=== PATIENT | female | born 1950 | race Caucasian/White ===

== ENCOUNTER 2025-01-08 10:16 | Outpatient (AMB) | payer MEDICARE, SELFPAY ==
--- NOTE | 2025-01-08 10:23 | MHC.OFFVIS ---
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 states this has been an ongoing issue for about 25 years. Legs get stiff at times as well. No pain. Issues going up and down stairs. Feels like there is fluid in her legs. 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 The swelling has been present for approximately 25 years on one side and has recently started affecting the other side, extending to the knees. The patient reports that the swelling does not cause pain but is associated with a sensation of pressure, particularly when climbing stairs or entering a bathtub. The patient has a history of diabetes mellitus, which does not currently cause pain during ambulation, except when ascending stairs, where pressure is felt in the knees. Previous evaluations included an MRI, which was conducted at [facility], but the patient did not receive satisfactory follow-up or trust in the previous provider's assessment. It has been affecting there daily activities including walking. It is noted more so in left leg. Patient denies any previous venous surgery or injections. Patient denies any history of DVT/ PE. Patient denies any history of phlebitis. Trial of compression includes - [] They now present for vascular evaluation regarding their varicose veins. Review of Systems Const Reports as per HPI ENT Reports no additional complaints Card Denies chest pain, Denies chest pain at rest and Denies chest pain with activity Resp Denies chest congestion and Denies cough GI Reports no additional complaints Musc Details: pain over varicosities, aching of lower extremities, swelling, cramping, heaviness and tiredness, itching Denies abnormal gait Skin/Breast Reports pruritus and Denies wounds Neuro Reports no additional complaints and Denies abnormal gait Psych Denies no additional complaints Physical Exam Const General: cooperative, healthy appearing and comfortable Orientation/consciousness: oriented to person, oriented to place and oriented to time Neck Carotids: no bruits Chest Chest palpation & inspection: normal inspection of the chest and normal palpation of entire chest wall Resp Effort & Inspection: normal respiratory effort and able to speak in complete sentences Cardio Rate: regular rate Heart sounds: S1 normal heart sound present and S2 normal heart sound present Peripheral pulses: Peripheral pulses 2+ throughout GI Inspection: Yes normal to inspection Skin Other: +2 edema, large rope-like varicosities greater than 4 mm CEAP Classification C4 - skin color changes Ep - Etiology Primary As - superficial veins P - reflux General skin exam: dry skin Neuro General: oriented to person, oriented to place and oriented to time Extrem Right lower extremity: full ROM, normal capillary refill and edema Left lower extremity: full ROM, normal capillary refill and edema Psych Mental Status: mental status grossly normal Assessment & Plan Assessment & Plan (1) Varicose veins of left lower extremity with inflammation: Code(s): I83.12 - Varicose veins of left lower extremity with inflammation Category: Medical Plan: In short, the patient has evidence of venous insufficiency. I have discussed the pathophysiology with the patient. In addition I have provided informational material regarding venous disease to the patient. We have discussed conservative measures including compression, elevation, and exercise. I have also provided a handout regarding appropriate use of compression stockings and where to purchase good compression stockings as well. I have taken the liberty of ordering venous insufficiency testing with the patient. They will follow up with me after testing. The patient had an opportunity to ask questions regarding the treatment plan. All questions were answered. Imaging studies, laboratory studies and physical exam results were discussed and reviewed in detail. No major barriers to understanding were identified. The patient expressed understanding and agreement with the above treatment plan. The patient is aware they should contact our office by phone for worsening of the current condition or the appearance of new symptoms. Thank you for allowing me to participate in the vascular care of this patient. If you have any questions or concerns regarding the treatment for the above condition please do not hesitate to contact me. The office telephone contact is [phone]. This note is constructed using voice recognition software. While every effort has been made to ensure accuracy, cardiac care nurse errors may have been included. Thank you for allowing me to participate in the care of your patient. Yours sincerely, Damon Carl MD, FACS, R.P.V.I. Orders: Orders US venous duplex LE BI Today I83.12 - Varicose veins of left lower extremity with inflammation Coding Level of Care Code New Pt Level 4 (37121) Diagnoses Varicose veins of left lower extremity with inflammation I83.12
--- OUTSIDE RECORDS SUMMARY | 2025-01-08 11:48 | XMS_ITS | Data Portability ---
Author Organization [facility]EL[facility] - [facility], [facility] [place] Address [address] [place] [address] Care Team Providers Care Faculty Member Name Role Phone DEENA LOPEZ Primary Care Provider [phone] Assessment Encounter Date Assessment Date Assessment LastModified by Organization Details LastModified Time 10/11/2024 10/11/2024 A: Progressing ROM and AROM Strength while following rule of pain. Added standing flexion and ABD this session to promote AROM against gravity for full range. P: Continue PT to decrease pain, increase ROM, optimize mechanics for functional movement, and facilitate independence in ADL's. Not available 10/11/2024 12:15:05 11/06/2024 11/06/2024 A: Continuation of current AROM HEP due to pt being in [place] for past 3 weeks; waiting until cleared by MD to begin strengthening. Excellent increase in available PROM P: Continue PT to decrease pain, increase ROM, optimize mechanics for functional movement, and facilitate independence in ADL's. FOLLOW UP WITH MD 11/08/24; HOLD STRENGTHENING UNTIL THEN Not available 11/06/2024 12:13:20 11/09/2024 11/09/2024 A: Added shoulder isometrics per MD. Patient didn't feel any stretch with wall slides or cane shoulder flexion today. P: Increase reps with isometrics N/V. Not available 11/09/2024 11:50:55 11/13/2024 11/13/2024 A: Added Tband therex per MD orders. P: Patient will be going on vacation for the next 2 weeks. Patient to be seen for 1-2 more visits and will then be D/Tanner. Add prone T, Y, I's and ER w/wt in S/L. [email or web address] Not available 11/13/2024 12:13:02 Plan of Treatment Reminders Order Date Submit Date Provider Last Modified By Organization Details Last Modified Time Details Appointments None record ed. Lab None record ed. Referral None record ed. Procedures None record ed. Surgeries None record ed. Imaging None record ed. Medication Orders None record ed. Patient TargetsNo targets recorded. Patient InstructionsNo instructions recorded. Reason for Referral None Reported. 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 Procedures Surgical History Date Name Laterality Status Provider Name and Address Organization Details Recorded Time 5 34980 Therapeutic Exercise (1:1) completed Brenden Will, PT [address] [facility], [place], [address], [facility] 11/13/2024 12:09:14 5 99573: Manual therapy completed Brenden Will PT [address], [place], [address], [facility] 11/13/2024 12:09:12 5 03520 Therapeutic Exercise (1:1) completed Brenden Will PT [address], [place], [address], [facility] 11/09/2024 11:42:50 5 73725: Hot or Cold Pack completed Brenden Will PT [address], [place], [address], [facility] 11/08/2024 06:38:36 5 72578: Manual therapy completed Brenden Will, PT [address], [place], [address], [facility] 11/09/2024 11:42:44 5 27360 Therapeutic Exercise (1:1) completed Steph Narayanan, ASSISTANT TO THE VICE PRESIDENT [address], [place], [address], [facility] 11/05/2024 13:53:02 5 06992: Hot or Cold Pack completed Steph Narayanan ASSISTANT TO THE VICE PRESIDENT [address], [place], [address], [facility] 11/05/2024 13:53:02 5 42250: Manual therapy completed Steph Narayanan ASSISTANT TO THE VICE PRESIDENT [address], [place], [address], [facility] 11/05/2024 13:53:02 5 54082 Therapeutic Exercise (1:1) completed Steph Narayanan PTA [address], [place], [address], [facility] 10/11/2024 12:16:56 5 83859: Hot or Cold Pack completed Steph Narayanan ASSISTANT TO THE VICE PRESIDENT [address], [place], [address], [facility] 10/10/2024 12:04:53 5 50815: Manual therapy completed Steph Narayanan ASSISTANT TO THE VICE PRESIDENT [address], [place], [address], [facility] 10/11/2024 12:17:03 5 47920 Therapeutic Exercise (1:1) completed Steph Narayanan, ASSISTANT TO THE VICE PRESIDENT [address], [place], [address], [facility] 10/08/2024 13:25:46 5 53719: Hot or Cold Pack completed Steph Narayanan, ASSISTANT TO THE VICE PRESIDENT [address], [place], [address], [facility] 10/05/2024 10:34:35 5 76104: Manual therapy completed Steph Narayanan, ASSISTANT TO THE VICE PRESIDENT [address], [place], [address], [facility] 10/05/2024 10:34:35 5 04671 Therapeutic Exercise (1:1) completed Steph Narayanan PTA [address], [place], [address], [facility] 10/03/2024 14:20:28 5 20720: Hot or Cold Pack completed Steph Narayanan, ASSISTANT TO THE VICE PRESIDENT [address], [place], [address], [facility] 10/03/2024 14:20:28 5 71204: Manual therapy completed Steph Narayanan, ASSISTANT TO THE VICE PRESIDENT [address], [place], [address], [facility] 10/03/2024 14:20:28 5 39502 Therapeutic Exercise (1:1) completed Steph Narayanan PTA [address], [place], [address], [facility] 10/01/2024 13:18:56 5 94983: Hot or Cold Pack completed Brenden Will, PT [address], [place], [address], [facility] 09/28/2024 14:25:25 5 35021: Manual therapy completed Brenden Will, PT [address], [place], [address], [facility] 09/28/2024 14:25:25 5 43218 Therapeutic Exercise (1:1) completed Steph Narayanan PTA [address], [place], [address], [facility] 09/26/2024 10:46:40 5 22911: Hot or Cold Pack completed Steph Narayanan, ASSISTANT TO THE VICE PRESIDENT [address], [place], [address], [facility] 09/26/2024 10:46:40 51447: Manual therapy completed Steph Narayanan, ASSISTANT TO THE VICE PRESIDENT [address], [place], [address], [facility] 09/26/2024 10:46:40 5 79627 Therapeutic Exercise (1:1) completed Steph Narayanan ASSISTANT TO THE VICE PRESIDENT [address], [place], [address], [facility] 09/21/2024 08:27:02 5 38239: Hot or Cold Pack completed Steph Narayanan, ASSISTANT TO THE VICE PRESIDENT [address], [place], [address], [facility] 09/21/2024 08:26:39 5 87293: Manual therapy completed Steph Narayanan PTA [address], [place], [address], [facility] 09/24/2024 10:58:29 47655 Therapeutic Exercise (1:1) completed Steph Narayanan PTA [address], [place], [address], [facility] 09/19/2024 13:45:39 5 91147: Hot or Cold Pack completed Steph Narayanan, ASSISTANT TO THE VICE PRESIDENT [address], [place], [address], [facility] 09/19/2024 13:45:39 44218: Manual therapy completed Steph Narayanan, ASSISTANT TO THE VICE PRESIDENT [address], [place], [address], [facility] 09/19/2024 13:45:39 07/21/202 5 40142 Therapeutic Exercise (1:1) completed Steph Narayanan, ASSISTANT TO THE VICE PRESIDENT [address], [place], [address], [facility] 09/14/2024 13:11:17 5 20933: Hot or Cold Pack completed Steph Narayanan, ASSISTANT TO THE VICE PRESIDENT [address], [place], [address], [facility] 09/14/2024 13:11:17 5 67036: Manual therapy completed Steph Narayanan, ASSISTANT TO THE VICE PRESIDENT [address], [place], [address], [facility] 09/14/2024 13:11:17 5 82199 Therapeutic Exercise (1:1) completed Steph Narayanan, ASSISTANT TO THE VICE PRESIDENT [address], [place], [address], [facility] 09/12/2024 15:21:46 5 36892: Hot or Cold Pack completed Steph Narayanan, ASSISTANT TO THE VICE PRESIDENT [address], [place], [address], [facility] 09/12/2024 15:21:46 5 85362: Manual therapy completed Steph Narayanan, ASSISTANT TO THE VICE PRESIDENT [address], [place], [address], [facility] 09/12/2024 15:21:46 5 80114 Therapeutic Exercise (1:1) completed Brenden Will, PT [address], [place], [address], [facility] 09/06/2024 13:05:22 5 82475: Hot or Cold Pack completed Brenden Will, PT [address], [place], [address], [facility] 09/06/2024 13:05:22 5 48673: Manual therapy completed Brenden Will, PT [address], [place], [address], [facility] 09/10/2024 12:43:14 5 02265 Therapeutic Exercise (1:1) completed Steph Narayanan, ASSISTANT TO THE VICE PRESIDENT [address], [place], [address], [facility] 09/06/2024 14:58:34 5 87807: Hot or Cold Pack completed Steph Narayanan, ASSISTANT TO THE VICE PRESIDENT [address], [place], [address], [facility] 09/05/2024 13:21:04 5 23527: Manual therapy completed Steph Narayanan, ASSISTANT TO THE VICE PRESIDENT [address], [place], [address], [facility] 09/05/2024 13:21:04 5 03169 Therapeutic Exercise (1:1) completed Brenden Will, PT [address], [place], [address], [facility] 08/29/2024 15:33:23 5 82662: Hot or Cold Pack completed Brenden Will, PT [address], [place], [address], [facility] 08/29/2024 15:33:23 5 17606: Manual therapy completed Brenden Will, PT [address], [place], [address], [facility] 08/29/2024 15:33:23 5 33027 Therapeutic Exercise (1:1) completed Brenden Will, PT [address], [place], [address], [facility] 08/27/2024 18:32:55 5 38858: Hot or Cold Pack completed Brenden Will, PT [address], [place], [address], [facility] 08/27/2024 18:32:55 5 76123: Manual therapy completed Brenden Will, PT [address], [place], [address], [facility] 08/27/2024 18:32:55 5 73848 Therapeutic Exercise (1:1) completed Steph Narayanan, ASSISTANT TO THE VICE PRESIDENT [address], [place], [address], [facility] 08/23/2024 08:27:30 5 52624: Hot or Cold Pack completed Steph Nraayanan, ASSISTANT TO THE VICE PRESIDENT [address], [place], [address], [facility] 08/23/2024 08:27:30 5 48529: Manual therapy completed Steph Narayanan, ASSISTANT TO THE VICE PRESIDENT [address], [place], [address], [facility] 08/23/2024 08:27:30 5 21223 Therapeutic Exercise (1:1) completed Brenden Will, PT [address], [place], [address], [facility] 08/20/2024 11:13:28 5 74952: Hot or Cold Pack completed Brenden Will, PT [address], [place], [address], [facility] 08/20/2024 11:13:28 5 71787: Manual therapy completed Brenden Will, PT [address], [place], [address], [facility] 08/20/2024 11:13:28 5 99330 Therapeutic Exercise (1:1) completed Brenden Will, PT [address], [place], [address], [facility] 08/17/2024 14:33:59 5 84655: Hot or Cold Pack completed Brenden Will, PT [address], [place], [address], [facility] 08/17/2024 14:34:20 5 83652: Manual therapy completed Brenden Will, PT [address], [place], [address], [facility] 08/17/2024 14:34:10 5 55134 Therapeutic Exercise (1:1) completed rBenden Will, PT [address], [place], [address], [facility] 08/15/2024 07:28:00 5 46255: Low complexity PT Eval completed Brenden Will, PT [address], [place], [address], [facility] 08/15/2024 07:28:05 Imaging Results None recorded. Procedure Notes None recorded. Medical Equipment None Reported. Allergies Allergen ID Allergen Name Allergen Category Reaction Reaction Severity Criticality Documentation Date Start Date Code Code System Note Provider Name and Address Organization Details Recorded Time 893550 walnut allergeni c extract food Not available Not available Not available 01/27/2024 30338 0 RxNorm SMOOTH CADENA [facility] 4 13:11:20 717082 apple extract food Not available Not available Not available 01/27/2024 88841 65 RxNorm SMOOTH CADENA [facility] 4 13:11:27 No known drug allergies Medications Name Sig Start Date Stop Date Status Note LastModified by Organization Details LastModified Time oxycodone 5 mg tablet Take 1 tablet every 6 hours by oral route as needed, for severe post op pain. 025 09/06 completed Not Available Not Available Not Available Vitals Date Recorded Body height Body mass index (BMI) Body weight Provider Name and Address Organization Details Last Updated DateTime 11/08/2024 160.02 cm 27.8 kg/m2 13128 g Essence rosario [facility] 11/08/2024 08:38:09 Social History None recorded. Functional Status None recorded. Mental Status None recorded. Family History Nothing Reported. Medical History Condition Response Allergies/Hayfever N Coronary Artery Disease N Breathing or lung disorders N Anxiety/Depression N Emphysema N Nerve Disorders N Thyroid Problems Y COPD N Pacemaker N Kidney/Bladder Problems N Anemia N Vascular Disease N Heart Trouble N Heart Attack ([place]) N Gastrointestinal Disease N Cholesterol Y Diabetes N Autoimmune disease N Inflammatory Joint disease N Bleeding Disorder N Orthotics N Seizures/Epilepsy N Arthritis Y Blood Clot N AIDS/HIV N Congestive Heart Failure (CHF) N Acid Reflux (GERD) N Cancer N Stroke N Asthma N Circulation Problems N Peripheral Vascular Disease N Sleep Apnea N Hepatitis N Heart Disease N Rheumatoid Arthritis N Pulmonary Embolism N Arrhythmia N Headaches N Fibromyalgia N Hypertension Y Osteoporosis N Gynecological HistoryNo gynecological history recorded. Obstetrics History GPAL:G 0 P 0 0 0 0 Past Encounters Encounter ID Performer Location Encounter Start Date Encounter Closed Date Diagnosis/Indication Diagnosis SNOMED-CT Code Diagnosis ICD10 Code Diagnosis IMO Codes Diagnosis Note [id number] Camilo Zhou MD [facility] 2nd floor [address] [facility] [place] [address] 01/27/2024 12:55:27 03/01/2024 07:49:56 Pain of right shoulder joint 5332179537 6688601 M25.511 932405 Nontraumat ic complete rupture of rotator cuff of right shoulder 6417134161 156904 M75.121 [id number] Camilo Zhou MD [facility] Clinical [address] [place] [address] 08/02/2024 08:07:32 08/17/2024 08:35:00 History of arthroscopic procedure on shoulder 104351593 Z98.890 [id number] Brenden Will, PT [facility] [address] [place] [address] 08/15/2024 14:44:46 08/15/2024 17:39:40 Rupture of rotator cuff of right shoulder 6359476360 [id number] M75.961 [id number] Brenden Will PT [facility] [address] [place] [address] 08/17/2024 13:53:45 08/17/2024 14:41:21 Rupture of rotator cuff of right shoulder 3135486986 [id number] M75.861 [id number] Brenden Will, PT [facility] [address] [place] [address] 08/20/2024 10:52:12 08/20/2024 13:27:53 Rupture of rotator cuff of right shoulder 3850046390 [id number] M75.934 [id number] Steph Narayanan, ASSISTANT TO THE VICE PRESIDENT [facility] [address] [place] [address] 08/23/2024 13:53:33 08/23/2024 15:10:13 Rupture of rotator cuff of right shoulder 0909577014 [id number] M75.106 [id number] Brenden Will, PT [facility] [address] [place] [address] 08/28/2024 15:00:27 08/28/2024 15:36:22 Rupture of rotator cuff of right shoulder 4136107275 [id number] M75.260 [id number] Brenden Will, PT [facility] [address] [place] [address] 09/03/2024 11:22:18 09/03/2024 14:24:31 Rupture of rotator cuff of right shoulder 6650223712 [id number] M75.963 [id number] Steph Narayanan, ASSISTANT TO THE VICE PRESIDENT [facility] [address] [place] [address] 09/06/2024 13:57:39 09/06/2024 15:36:38 Rupture of rotator cuff of right shoulder 3161252530 [id number] M75.783 [id number] MD [facility] Clinical [address] [place] [address] 09/06/2024 08:22:46 09/18/2024 07:41:25 Nontraumatic complete rupture of rotator cuff of right shoulder 3045234474 647659 M75.121 [id number] Brenden Will, PT [facility] [address] [place] [address] 09/10/2024 11:52:58 09/10/2024 14:50:26 Rupture of rotator cuff of right shoulder 8999062441 [id number] M75.589 [id number] Steph Lady, ASSISTANT TO THE VICE PRESIDENT [facility] [address] [place] [address] 09/13/2024 12:50:55 09/13/2024 13:59:30 Rupture of rotator cuff of right shoulder 0720678585 [id number] M75.735 [id number] Steph Lady, ASSISTANT TO THE VICE PRESIDENT [facility] [address] [place] [address] 09/17/2024 13:28:06 09/17/2024 14:31:15 Rupture of rotator cuff of right shoulder 3291925240 [id number] M75.421 [id number] Steph Lady ASSISTANT TO THE VICE PRESIDENT [facility] [address] [place] [address] 09/20/2024 11:25:15 09/20/2024 12:04:37 Rupture of rotator cuff of right shoulder 8204343320 [id number] M75.852 [id number] Steph Lady, ASSISTANT TO THE VICE PRESIDENT [facility] [address] [place] [address] 09/24/2024 10:29:04 09/24/2024 13:35:07 Rupture of rotator cuff of right shoulder 6637686039 [id number] M75.330 [id number] Steph Narayanan, ASSISTANT TO THE VICE PRESIDENT [facility] [address] [place] [address] 09/27/2024 10:22:21 09/27/2024 11:21:41 Rupture of rotator cuff of right shoulder 9965588378 [id number] M75.973 [id number] Steph Lady, ASSISTANT TO THE VICE PRESIDENT [facility] [address] [place] [address] 10/01/2024 11:46:10 10/01/2024 13:10:46 Rupture of rotator cuff of right shoulder 1826865447 [id number] M75.464 [id number] Viry Zepeda, ASSISTANT TO THE VICE PRESIDENT [facility] [address] [place] [address] 10/04/2024 10:52:29 10/04/2024 11:43:44 Rupture of rotator cuff of right shoulder 3464725632 [id number] M75.921 [id number] Steph Narayanan, ASSISTANT TO THE VICE PRESIDENT [facility] [address] [place] [address] 10/08/2024 12:20:35 10/08/2024 13:31:16 Rupture of rotator cuff of right shoulder 1964214009 [id number] M75.759 [id number] Steph Narayanan, ASSISTANT TO THE VICE PRESIDENT [facility] [address] [place] [address] 10/11/2024 11:15:58 10/11/2024 12:43:32 Rupture of rotator cuff of right shoulder 1467200150 [id number] M75.622 [id number] Steph Lady, ASSISTANT TO THE VICE PRESIDENT [facility] [address] [place] [address] 11/06/2024 11:21:26 11/06/2024 12:26:44 Rupture of rotator cuff of right shoulder 7953523381 [id number] M75.228 [id number] Brenden Will, PT [facility] [address] [place] [address] 11/09/2024 10:54:00 11/09/2024 11:41:55 Rupture of rotator cuff of right shoulder 0879257478 [id number] M75.096 [id number] MD [facility] [address] [place] [address] 11/08/2024 08:29:26 11/20/2024 14:32:44 Nontraumatic complete rupture of rotator cuff of right shoulder 4421957612 611109 M75.121 [id number] Brenden Will, PT [facility] [address] [place] [address] 11/13/2024 10:58:31 11/13/2024 12:13:18 Rupture of rotator cuff of right shoulder 0198834436 9335006 M75.101 Health Concerns Section Related Observation LastModified by Organization Detai ls LastModified Time None Recorded Concern Status LastModified by Organization Details LastModified Time None Recorded Advance Directives Directive None Recorded Payers Insurance Date Sequence Insurance Name Policy Number Policy Stewart Covered Member ID Stewart Member ID Guarantor Name 11/24/2024 1 [facility] - MEDICARE PREFERRED (MEDICARE REPLACEMENT HMO) [id number] Sterlingbrenna Galdino Pizanoelly [id number] Cyrus Jama Notes Date Note Type Note Provider Name and Address Organization Details Recorded Time 10/11/2024 text/html Pt reports no change in sx since last session. Pain will get up to about a 3-4/10 when reaching the end of available range, but will go away immediately. Steph Narayanan, ASSISTANT TO THE VICE PRESIDENT [address], [place], [address], [facility] 10/11/2024 12:17:48 11/06/2024 text/html Pt reports no pain coming into session and she continued to do her exercises while she was away in [place]. Steph Narayanan, ASSISTANT TO THE VICE PRESIDENT [address], [place], [address], [facility] 11/06/2024 12:14:29 11/08/2024 text/html Surgery: Right shoulder arthroscopy, subacromial decompression, distal clavicle excision, rotator cuff repair July 255Chief complaint: Postop visitHPI: Patient here today for postop visit for above mentioned procedure. Patient reports they are doing well. Pain has been well-controlled. Patient compliant with brace use and post op restrictions.Interval history September 06, 2024: Patient today for her 6-week postop visit. She has been attending physical therapy, compliant with postop restrictions and sling. Using [id number] Tylenol and NSAIDs for pain.Interval history November 08, 2024: Patient here today for follow-up visit approximately 3-1/2 months out from surgery. She reports she is doing very well. She has not had any pain. Recently started strengthening exercises at physical therapy. Physical exam Patient appears comfortable, no distressShoulder arthroscopic portal incisions well-healedSoft compressible compartments.Neurovasc ularly intact distallyShoulder ROM: Active forward elevation to 160 degrees, external rotation 50 degrees, internal rotation L4 5/5 strength rotator cuff testing Intraoperative Findings: Full-thickness, crescent-shaped supraspinatus tear with retraction to the mid humeral head repaired with double row, 4 anchor construct 2 views of shoulder AP and axillary views ordered, obtained, reviewed today demonstrate postsurgical change status post decompression and distal clavicle excision with appropriate decompression Plan:Doing well status post shoulder surgery outlined above. Patient following an expected postoperative path and protocol. She will continue with rotator cuff/periscapular isometric strengthening. Understands they will continue to be careful with the shoulder as the cuff repair still lacks adequate strength to allow unrestricted use or strengthening. Should use caution while lifting overhead/away from the body. Typically recommend return to all activies as tolerated at approximately 6 months post op. At this point patient will follow up as needed. Camilo Zhou MD [address] [address], [place], [address], [facility] 11/08/2024 17:15:29 11/09/2024 text/html Pt reports no pain today, and states that she's been able to drive and reach up into cupboards without any problems. Brenden Will, PT [address] [facility] [address], [place], [address], [facility] 11/09/2024 11:51:13 11/13/2024 text/html Pt reports no pain today, stating that she'll be on vacation for the next 2 weeks, and will resume therapy after vacation. Brenden Will, PT [address], [place], [address], [facility] 11/13/2024 12:13:06 OBGyn Episode No OBEpisode recorded.
== END 2025-01-08 10:54 | disposition home or self-care (01) ==
LOC: HO.HVS 10:16
PROVIDERS: PCP Internal Medicine; Visit Provider Surgery Vascular Surgery
DX: I83.12 Varicose veins of left lower extremity with inflammation (principal)
CPT/HCPCS: 99204

== ENCOUNTER → 2025-01-08 10:16 | Outpatient (BNVA) | payer MEDICARE, SELFPAY | PROVIDERS: PCP Internal Medicine; Visit Provider Surgery Vascular Surgery | DX: I83.12 Varicose veins of left lower extremity with inflammation (principal) | CPT/HCPCS: 99202 ==